=== PATIENT | male | born 1995 | race Caucasian/White ===

== ENCOUNTER 2022-12-18 10:01 | Emergency (ER) | payer OTHER ==
[2022-12-18 10:30] LABS: RAPID STREP SCREEN Negative (Negative)
--- NOTE | 2022-12-18 12:33 | ED Physician Documentation ---
History of Present Illness - Stated complaint Stated Complaint: FEVER/HEADACHE - Chief complaint Chief Complaint: Fever - History obtained from History obtained from: Patient - Additonal information Additional information: The patient comes to the emergency department chief complaint of sore throat for the last couple of days. He has also had a headache and he had a fever this morning around 101. The patient states that he had a viral syndrome last summer and ever since then, he feels like he has had some postnasal drip. He states he keeps accumulating phlegm in his throat for all these months. He denies any sinus congestion. He did have bronchitis treated with antibiotics over the winter. He has no underlying lung disease that he knows of. He has no known allergies and has never had seasonal rhinitis before. He has not been exposed to anybody who has been ill that he knows of. He states he mainly came in this morning because he coughed up some brown phlegm which she had never done before. He states that for a couple days before that, he had noticed that his phlegm was yellowish-green. Patient denies any symptoms of illness otherwise. No other complaints at this time. PD PAST MEDICAL HISTORY - Past Medical History Past Medical History: No - Allergies Allergies/Adverse Reactions: Allergies Allergy/AdvReac Type Severity Reaction Status Date / Time No Known Drug Allergies Allergy Verified 12/18/22 10:08 - Social History Does the pt smoke?: No Smoking Status: Never smoker PD ED PE NORMAL - Vitals Vital signs reviewed: Yes - General General: Alert and oriented X 3, No acute distress, Well developed/nourished - HEENT HEENT: Atraumatic, PERRL, EOMI, Moist mucous membranes - Neck Neck: Supple, no meningeal sign - Cardiac Cardiac: RRR, No murmur - Respiratory Respiratory: No respiratory distress, Clear bilaterally - Abdomen Abdomen: Soft, Non tender, Non distended - Derm Derm: Normal color, Warm and dry, No rash - Extremities Extremities: No deformity, No edema - Neuro Neuro: Alert and oriented X 3, Other (Grossly intact) - Psych Psych: Normal mood, Normal affect Results - Vitals Vitals: Vital Signs - 24 hr 12/18/22 12/18/22 10:06 12:44 Temperature 37.0 C 37.7 C Heart Rate 93 84 Respiratory 20 18 Rate Blood Pressure 112/71 142/64 H O2 Saturation 97 99 Oxygen O2 Source Room air - Labs Labs: Laboratory Tests 12/18/22 10:10 Group A Strep Rapid Negative PD Medical Decision Making - ED course Complexity details: reviewed results, re-evaluated patient, considered differential, d/w patient ED course: I discussed with the patient that his symptoms are most likely viral. His strep test is negative and his exam is benign. I cannot explain why he has had postnasal drip since the summer, though we have discussed the possibility of some sort of allergy. I discussed with him that right now, the brown phlegm does not qualify him for antibiotics. We have discussed symptoms that should prompt him to return to the emergency department but otherwise, he may follow-up with his primary doctor as needed. Departure - Departure Disposition: 01 Home, Self Care Clinical Impression: Viral upper respiratory illness Condition: Stable Instructions: ED Viral Syndrome Comments: Your strep test is negative today. A throat culture will be sent and we will call you if anything come back positive on this. Most likely, your symptoms are caused by a viral illness. In general, these last anywhere from several days to a couple of weeks and then go away on their own. If you are noticing increasing shortness of breath and your fever persist for more than the next several days, or if you notice after week that you are having increasing amounts of thick, green phlegm, then you should be reevaluated. Otherwise, please rest and drink plenty of fluids for the next few days. Follow-up with your doctor as needed. Forms: Activity restrictions Discharge Date/Time: 12/18/22 12:44
[2022-12-18 12:44] VITALS: BP 142/64
--- NOTE | 2022-12-20 11:23 | ED Physician Documentation ---
ED Addendum - Addendum Addendum: 12/20/22 11:23 I called and spoke with patient, his strep culture came out positive. I E prescribed penicillin VK 500 mg p.o. 4 times daily x10 days to [facility] in [place] and he will go pick them up.
== END 2022-12-18 12:44 | disposition home or self-care (01) ==
LOC: ED 10:01
DX: J06.9 Acute upper respiratory infection, unspecified (principal)
CPT/HCPCS: 87070; 87077; 87430; 99283